=== PATIENT | male | born 1985 | race African-American/Black ===

== ENCOUNTER 2019-07-29 21:33 | Emergency (ER) | payer SELFPAY ==
[~2019-07-29] VITALS: Ht 170.2 cm; Wt 81.8 kg
[2019-07-29] MEDS ORDERED: LIDOCAINE 1% PF 2 ML VIAL. INJ ONE (22:30)
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
[2019-07-29] MEDS ORDERED: CEPH500C PO (22:44)
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
[2019-07-29] MEDS ORDERED: CEPHALEXIN 250 MG CAPSULE. PO ONE (23:15)
[2019-07-29 23:16] VITALS: BP 137/67
== END 2019-07-29 23:22 | disposition home or self-care (01) ==
LOC: ER 21:33
DX: S41.112A Laceration without foreign body of left upper arm, initial encounter (principal); F17.200 Nicotine dependence, unspecified, uncomplicated; X99.1XXA Assault by knife, initial encounter; Y93.89 Activity, other specified; Y92.89 Other specified places as the place of occurrence of the external cause; Y99.8 Other external cause status
CPT/HCPCS: 12001; 73060; 99283; J3490